=== PATIENT | female | born 1985 | race Caucasian/White ===

== ENCOUNTER → 2017-07-06 | Outpatient (CLI) | payer OTHER ==
[2014-02-04 13:19] VITALS: BP 110/67
== END | disposition home or self-care (01) ==
LOC: LAB 15:10 → EDSTATUS 15:17
DX: Z02.83 Encounter for blood-alcohol and blood-drug test (principal)
CPT/HCPCS: 36415

== ENCOUNTER 2021-07-07 17:34 | Emergency (ER) | payer OTHER ==
[~2021-07-07] VITALS: Ht 170.2 cm; Wt 54.5 kg
[2021-07-07 18:13] VITALS: BP 123/80
--- NOTE | 2021-07-07 19:28 | RAD ---
EXAM: XR FOREARM_LEFT 2 VIEWS 07/07/2021 4:46 PM CLINICAL INDICATION: Fall, pain COMPARISON: None TECHNIQUE: 2 views of the left forearm FINDINGS: There is a transverse fracture of the mid to distal ulnar shaft with less than one cortex width displacement. No angulation. No other fracture or malalignment. Mild soft tissue swelling along the ulnar fracture. IMPRESSION: Minimally displaced ulnar shaft fracture. Electronically signed by: Amanda Kohler MD (07/07/2021 7:26 PM) [id number]
--- NOTE | 2021-07-07 19:44 | PHYS DOC ---
Past Medical History Past Medical History: Other Additional Past Medical Histor: irregular menstrual periods Past Surgical History: Other Additional Past Surgical Histo: R wrist (metal luis e placed),ECTOPIC Smoking Status: Current Every Day Smoker Additional Information: 0.25 PPD Alcohol Use: Rarely Drug Use: Marijuana General Adult EDM: Chief Complaint: UPPER EXTREMITY INJURY HPI: HPI: Patient is a 35 year old female who presents to the ED today complaining of 7 out of 10 right forearm pain, symptoms began this morning, she states she fell down skateboarding. Patient describes the pain as sharp and constant worse on range of motion. Denies hitting her head on the ground. Review of Systems: Review of Systems: Constitutional: Denies fever or chills. [] Musculoskeletal: Reports right forearm pain Integument: Denies rash. [] Neurologic: Denies headache, focal weakness or sensory changes. [] ] Psychiatric: Denies depression or anxiety. [] Heart Score: C/O Chest Pain: N/A Risk Factors: Risk Factors: DM, Current or recent (<one month) smoker, HTN, HLP, family history of CAD, obesity. Risk Scores: Score 0 - 3: 2.5% MACE over next 6 weeks - Discharge Home Score 4 - 6: 20.3% MACE over next 6 weeks - Admit for Clinical Observation Score 7 - 10: 72.7% MACE over next 6 weeks - Early Invasive Strategies Allergies: Allergies: Allergies Coded Allergies Type Severity Reaction Last Updated Verified No Known Drug Allergies 02/04/14 No Physical Exam: PE: Constitutional: Well developed, well nourished, no acute distress, non-toxic appearance. [] Skin: Warm, dry, no erythema, no rash. [] Back: No tenderness, no CVA tenderness. [] Extremities: Right forearm with no obvious deformity, bruising noted mid right forearm ulnar aspect. Tenderness on palpation of the right mid forearm ulnar aspect, limited range of motion to the right forearm due to pain. Adequate radial, medial, ulnar sensation to the right upper extremity. +2 right radial pulse. Cap refill less than 2 seconds the right fingers Neurologic: Alert and oriented X 3, normal motor function, normal sensory function, no focal deficits noted. [] Psychologic: Restless, fidgeting around Current Patient Data: Vital Signs: Vital Signs Date Time Temp Pulse Resp B/P (MAP) Pulse Ox O2 Delivery O2 Flow Rate FiO2 10/28/21 18:13 99.2 125 17 123/80 (94) 98 Room Air 99.2 EKG: EKG: [] Radiology/Procedures: Radiology/Procedures: []PROCEDURE: FOREARM LEFT EXAM: XR FOREARM_LEFT 2 VIEWS 07/07/2021 4:46 PM CLINICAL INDICATION: Fall, pain COMPARISON: None TECHNIQUE: 2 views of the left forearm FINDINGS: There is a transverse fracture of the mid to distal ulnar shaft with less than one cortex width displacement. No angulation. No other fracture or malalignment. Mild soft tissue swelling along the ulnar fracture. IMPRESSION: Minimally displaced ulnar shaft fracture. Electronically signed by: Amanda Kohler MD (07/07/2021 7:26 PM) [id number] DICTATED and SIGNED BY: AMANDA KOHLER MD DATE: 07/07/21 [id number] 0 Course & Med Decision Making: Course & Med Decision Making Pertinent Labs and Imaging studies reviewed. (See chart for details) This is a 35-year-old female patient presented to the ED today with right forearm pain that began after she fell today. Right forearm x-rays interpreted by radiologist were noted for minimally displaced ulnar shaft fracture. Patient was placed in a sugar tong in the ED by the photonics technician, neurovascular exam done by me is normal. Ice elevation encouraged. Provided orthopedic doctor for follow-up Teresa Disclaimer: Teresa Disclaimer: This electronic medical record was generated, in whole or in part, using a voice recognition dictation system. Departure Departure Impression: Primary Impression: Ulnar shaft fracture Qualified Codes: S52.222A - Displaced transverse fracture of shaft of left ulna, initial encounter for closed fracture Disposition: 01 HOME / SELF CARE / HOMELESS Condition: STABLE Referrals: NO PCP (PCP) AMANDA HERNADEZ DO Call the office tomorrow and set up a follow-up appointment Patient Instructions: Ulnar Fracture Additional Instructions: You were evaluated in the emergency room, you fractured your right ulna bone. Please ice and elevate the extremity. Contact the provided orthopedic doctor tomorrow morning and set up a follow-up appointment in the clinic Scripts Hydrocodone Bit/Acetaminophen (HYDROCODONE-APAP 5-325 ) 1 Tab Tablet 1 TAB PO PRN Q6HRS PRN for PAIN, #14 TAB 0 Refills Prov: NATALIE MURRAY [employer] 07/07/21 NATALIE MURRAY APRN Jul 07, 2021 19:44
[2021-07-07] MEDS ORDERED: HYDR-2761 PO (19:52)
== END 2021-07-07 20:12 | disposition home or self-care (01) ==
LOC: ER 17:34
DX: S52.222A Displaced transverse fracture of shaft of left ulna, initial encounter for closed fracture (principal); F17.200 Nicotine dependence, unspecified, uncomplicated; V00.131A Fall from skateboard, initial encounter; Y93.89 Activity, other specified; Y92.89 Other specified places as the place of occurrence of the external cause; Y99.8 Other external cause status
CPT/HCPCS: 29125; 73090; 99284